=== PATIENT | male | born 1970 | race Caucasian/White ===

== ENCOUNTER 2022-12-08 03:39 | Emergency (ER) | payer MEDICAID ==
[2022-12-08 04:01] VITALS: PULSE 101; RESP 18; TEMP 98.3; O2SAT 97
[2022-12-08] MEDS ORDERED: XARELTO 10 MG TABLET ONE (04:15)
[2022-12-08] MEDS ORDERED: ENOXAPARIN SODIUM SQ STA (04:19)
--- NOTE | 2022-12-08 04:19 | ERPHSYRPT ---
- History of Present Illness Time Seen by Provider: 12/08/22 04:13 Source: patient Exam Limitations: no limitations Patient Subjective Stated Complaint: " I was at [facility] on and they checked me for clots. I did a doppler study on Friday and now I feel like my leg is getting worse." Triage Nursing Assessment: Pt presents to ER with complaints of left leg pain, dx with DVT in leg Friday following doppler study at [facility]. Pt is concerned that leg is getting more swollen and more pain. Pt is alert and oriented x 3. Skin is pink, warm, dry. Pt left leg does appear tender upon exam. Pitting edema noted to left lower extremity. Leg is also red and hot to touch Pt is able to localize where pain is in upper posterior thigh, a knot is noted upon exam. Respirations are easy. Denies n/v/d. Rates leg pain 4/10 scale. Pulses are present in distal leg but weak. Physician History: " I was at [facility] on and they checked me for clots. I did a doppler study on Friday and now I feel like my leg is getting worse." Pt presents to ER with complaints of left leg pain, dx with DVT in leg Friday following doppler study at [facility]. Pt is concerned that leg is getting more swollen and more pain. Pt is alert and oriented x 3. Skin is pink, warm, dry. Pt left leg does appear tender upon exam. Pitting edema noted to left lower extremity. Leg is also red and hot to touch Pt is able to localize where pain is in upper posterior thigh, a knot is noted upon exam. Respirations are easy. Denies n/v/d. Rates leg pain 4/10 scale. Pulses are present in distal leg but weak. Patient was given xarelto RX but patient didnot started it as pharmacy didnot have it or They have ordered it and will be available on friday Severity of Pain-Max: moderate Severity of Pain-Current: moderate Lower Extremities Pain: leg: left Allergies/Adverse Reactions: No Known Drug Allergies Allergy (Verified 12/08/22 03:55) Home Medications: No Reportable Medications [No Reported Medications] 12/08/22 [History] Hx Tetanus, Diphtheria Vaccination/Date Given: Yes Hx Influenza Vaccination/Date Given: Yes Hx Pneumococcal Vaccination/Date Given: No Immunizations Up to Date: Yes Travel Risk - International Travel Have you traveled outside of the country in past 3 weeks: No - Coronavirus Screening Are you exhibiting any of the following symptoms?: No Close contact with a COVID-19 positive Pt in past 14-21 Days: No - Vaccine Status Have you recieved a Covid-19 vaccination: No - Review of Systems Constitutional: No Fever, No Chills Eyes: No Symptoms Ears, Nose, & Throat: No Symptoms Respiratory: No Cough, No Dyspnea Cardiac: No Chest Pain, No Edema, No Syncope Abdominal/Gastrointestinal: No Abdominal Pain, No Nausea, No Vomiting, No Diarrhea Genitourinary Symptoms: No Dysuria Musculoskeletal: Other (left calf pain), No Back Pain, No Neck Pain Skin: No Rash Neurological: No Dizziness, No Focal Weakness, No Sensory Changes Psychological: No Symptoms Endocrine: No Symptoms All Other Systems: Reviewed and Negative - Past Medical History Pertinent Past Medical History: Yes Respiratory History: Pulmonary Embolism Musculoskeletal History: Other Other Medical History: DVT - Past Surgical History Past Surgical History: Yes Other Surgical History: broken jaw - Social History Smoking Status: Current every day smoker How long have you smoked: 30 years Exposure to second hand smoke: No Drug Use: none Patient Lives Alone: No - Nursing Vital Signs Nursing Vital Signs: Initial Vital Signs Temperature 98.3 F 12/08/22 03:44 Pulse Rate 105 H 12/08/22 03:44 Respiratory Rate 20 12/08/22 03:44 Blood Pressure 172/106 12/08/22 03:44 O2 Sat by Pulse Oximetry 96 12/08/22 03:44 Pain Scale Pain Intensity 4 - Physical Exam General Appearance: alert Eyes, Ears, Nose, Throat Exam: moist mucous membranes Neck Exam: non-tender, supple Cardiovascular/Respiratory Exam: chest non-tender, normal breath sounds, regular rate/rhythm, no respiratory distress Gastrointestinal/Abdominal Exam: non-tender, guarding Back Exam: normal inspection, No vertebral tenderness Hips Exam: bilateral: non-tender Legs Exam: left leg: pain, soft tissue tenderness, swelling Neuro/Tendon Exam: normal sensation, normal motor functions Mental Status Exam: alert, oriented x 3, cooperative Skin Exam: normal color, warm, dry SpO2: 97 - Course Nursing assessment & vital signs reviewed: Yes Ordered Tests: Medication Summary Generic Name Dose Route Start Last Admin Trade Name Freq PRN Reason Stop Dose Admin Rivaroxaban 15 mg 10/08/23 10:00 Rivaroxaban 10 Mg Tablet PO 01/07/23 09:59 BID BALJEET Discontinued Medications Generic Name Dose Route Start Last Admin Trade Name Lucas GILLETTE Reason Stop Dose Admin Enoxaparin Sodium 120 mg 12/08/22 04:19 Enoxaparin Sodium 120 Mg/0.8 Ml Syringe SQ 12/08/22 04:20 STAT STA Rivaroxaban Confirm 12/08/22 04:15 Rivaroxaban 10 Mg Tablet Administered 12/08/22 04:16 Dose 50 mg .ROUTE .STK-MED ONE - Progress Progress: unchanged Progress Note: 12/08/22 04:17 lovenox 120 mg given in ER. Xarelto 15 mg one dose given in ER and patient is given 3 tablets of 15 mg xarelto to take it home. till he get his xarelto from pharmacy Counseled pt/family regarding: diagnosis, need for follow-up - Departure Departure Disposition: Home Clinical Impression: Deep vein thrombosis of left lower extremity Qualifiers: Affected thrombotic vein of extremity: femoral Chronicity: acute Qualified Code(s): I82.412 - Acute embolism and thrombosis of left femoral vein Condition: Stable Critical Care Time: No Instructions: Deep Vein Thrombosis (Blood Clots in the Legs) (DC) Additional Instructions: Discharge/Care Plan FERSHARIDHEERAJ Gayathri was seen on 12/08/22 in the Emergency Room. The patient was counseled regarding Diagnosis,Lab results, Imaging studies, need for follow up and when to return to the Emergency Room. Prescriptions given: Discharge Note I have spoken with the patient and/or caregivers. I have explained the patient's condition, diagnosis and treatment plan based on the information available to me at this time. I have answered the patient's and/or caregiver's questions and addressed any concerns. The patient and/or caregivers have as good understanding of the patient's diagnosis, condition and treatment plan as can be expected at this point. The vital signs have been stable. The patient's condition is stable and appropriate for discharge from the emergency department. The patient will pursue further outpatient evaluation with the primary care physician or other designated or consulting physician as outlined in the discharge instructions. The patient and/or caregivers are agreeable to this plan of care and follow-up instructions have been explained in detail. The patient and/or caregivers have received these instruction. The patient/and or caregivers are aware that any significant change in condition or worsening of symptoms should prompt an immediate return to this or the closest emergency department or call 911. DHEERAJ FOSTER was seen on 12/08/22 n the Emergency Room. At that time you were treated for an emergent condition, during your visit Laboratory, Radiology and/or other procedures may have been ordered. It is very important that you follow-up with your Primary Care Physician NO FAMILY DOCTOR within the next 24- 48 hours to review your Emergency Room visit and the final results of testing that was ordered. Some test results such as Urine Cultures, Blood Cultures, and other cultures if ordered will not be finalized for 24-48 hours. If you do not have a Primary Care Provider please call the medical records department at [phone] ext [phone] to obtain a copy of your results or you may sign into our patient portal to obtain these results by visiting us @ [email or web address] and completing the following steps: 1. Click on the Patient Portal link 2. Click the Patient Self Enrollment Link to complete the enrollment form and entering your 3. Once the enrollment form is completed you will receive an email with a temporary ID and password at the email address you provided. 4. Next choose a user name and password. Your user name must be at least 4 characters long and your password must be at least 4 characters long. 5. Choose a security question from the list and provide your answer to the question. If you already have signed into the Health Portal you may access your Health Care Information 23/09 by the following steps: 1. Login to our website @ [email or web address] via [place] 2. Enter your original user name and password. FAQS The [facility] Health Portal is an online tool that contains your Lab Results, Radiology Reports, Visit History, Discharge Instructions and Health Summary Lab and Radiology Results will not be available for 72 hours on the portal. The Portal is a secure site, passwords are encryted and URLs are re-written so they cannot be copied and pasted. You and authorized family members are the only ones who can access your Portal. Also there is a timeout feature that protects your information if you leave the Portal page open. If you have technical difficulty please use the Contact Us link on the page this will allow you to submit any questions you have regarding the Portal or you may contact the Medical Record Department at [phone] ext [phone].
[2022-12-08] MEDS ORDERED: ENOXAPARIN SODIUM SQ ONE (04:20)
[2022-12-08 04:35] VITALS: BP 139/79
[2022-12-08] MEDS ORDERED: XARELTO 10 MG TABLET PO SCH (10:00)
== END 2022-12-08 04:38 | disposition home or self-care (01) ==
LOC: ED 03:39
DX: I82.412 Acute embolism and thrombosis of left femoral vein (principal); M79.605 Pain in left leg; Z28.310 Unvaccinated for COVID-19; Z72.0 Tobacco use
CPT/HCPCS: 96372; 99281; J1650; A9270-GY

== ENCOUNTER 2023-01-16 22:26 | Emergency (ER) | payer MEDICAID, OTHER ==
--- NOTE | 2023-01-16 22:30 | ERPHSYRPT ---
- History of Present Illness Time Seen by Provider: 01/16/23 22:30 Source: patient, EMS Exam Limitations: no limitations Physician History: This is an overweight 52-year-old white male patient who continues to smoke cigarettes daily and presents with right anterior chest pain that came on rather suddenly earlier today with associated shortness of breath. Patient states that it hurts to take a deep breath then and feels bruised. Patient has no diagnosed coronary artery disease. However, he is on Xarelto 20 mg orally each day because a history of DVT and a history of pulmonary embolism. Patient lacks transportation and he contacted the paramedics to transfer him to the emergency department in the ambulance. Patient has no fevers. He denies cough. He had no nausea vomiting or diarrhea. He denies abdominal pain. Patient states he has been taking his medication as prescribed each day. Timing/Duration: today Severity of Dyspnea-Max: mild Severity of Dyspnea-Current: mild Possible Cause: no prior episodes Modifying Factors: Improves With: deep breath Associated Symptoms: intermittent, chest pain/discomfort (Right anterior chest wall pain), No calf pain, No leg swelling Allergies/Adverse Reactions: No Known Drug Allergies Allergy (Verified 01/16/23 22:28) Home Medications: Rivaroxaban [Xarelto] 20 mg PO DAILY 01/16/23 [History] Hx Tetanus, Diphtheria Vaccination/Date Given: Yes Hx Influenza Vaccination/Date Given: Yes Hx Pneumococcal Vaccination/Date Given: No Travel Risk - International Travel Have you traveled outside of the country in past 3 weeks: No - Coronavirus Screening Are you exhibiting any of the following symptoms?: No Close contact with a COVID-19 positive Pt in past 14-21 Days: No - Vaccine Status Have you recieved a Covid-19 vaccination: No - Review of Systems Constitutional: No Symptoms Eyes: No Symptoms Ears, Nose, & Throat: No Symptoms Respiratory: No Symptoms, Dyspnea (Mild with deep inspiration) Cardiac: Chest Pain (Right anterior chest wall pain) Abdominal/Gastrointestinal: No Symptoms Genitourinary Symptoms: No Symptoms Musculoskeletal: No Symptoms Skin: No Symptoms Neurological: No Symptoms Psychological: No Symptoms Endocrine: No Symptoms Hematologic/Lymphatic: No Symptoms Immunological/Allergic: No Symptoms All Other Systems: Reviewed and Negative - Past Medical History Pertinent Past Medical History: Yes Respiratory History: Pulmonary Embolism Musculoskeletal History: Other Other Medical History: DVT - Past Surgical History Past Surgical History: Yes Other Surgical History: broken jaw - Social History Smoking Status: Current every day smoker How long have you smoked: 30 years Exposure to second hand smoke: No Drug Use: none Patient Lives Alone: No - Nursing Vital Signs Nursing Vital Signs: Initial Vital Signs Temperature 99.1 F 01/16/23 22:27 Pulse Rate 100 H 01/16/23 22:27 Respiratory Rate 28 H 01/16/23 22:27 Blood Pressure 181/105 01/16/23 22:27 O2 Sat by Pulse Oximetry 99 01/16/23 22:27 Pain Scale Pain Intensity 2 - Physical Exam General Appearance: no apparent distress, alert, anxiety, obese Eye Exam: PERRL/EOMI, eyes nml inspection Ears, Nose, Throat Exam: hearing grossly normal, normal ENT inspection, normal pharynx Neck Exam: normal inspection, non-tender, supple, full range of motion Respiratory Exam: normal breath sounds, chest tenderness, lungs clear (Right anterior chest wall pain), airway intact, No respiratory distress Cardiovascular/Chest Exam: normal heart sounds, regular rate/rhythm Abdominal/Gastrointestinal Exam: soft, normal bowel sounds, No tenderness Rectal Exam: deferred, not done Extremity Exam: non-tender, normal range of motion (Patient has evidence of chronic venous stasis disease) Neurologic Exam: alert, oriented x 3, cooperative, tax attorney II-XII nml as tested, normal mood/affect, nml cerebellar function, nml station & gait, sensation nml Skin Exam: normal color, warm, dry Lymphatic Exam: No adenopathy SpO2 Interpretation: normal O2 Delivery: Room Air - Course Nursing assessment & vital signs reviewed: Yes EKG Interpreted by Me: RATE (97), NORMAL AXIS, LAFB, NORMAL INTERVALS, NORMAL QRS, Other (No acute ischemic changes on today's twelve-lead EKG.) Ordered Tests: Active Orders 24 hr Category Date Time Status Land Planner STAT Care 01/16/23 22:43 Active EKG-ER Only STAT Care 01/16/23 22:42 Active IV Insertion STAT Care 01/16/23 22:42 Active Pulse Oximetry (ED) STAT Care 01/16/23 22:42 Active CHEST WITH CONTRAST [CT] Stat Exams 01/16/23 23:28 Completed CBC W DIFF Stat Lab 01/16/23 22:45 Completed CMP Stat Lab 01/16/23 22:45 Completed NT PRO BNPII Stat Lab 01/16/23 22:45 Completed PROTIME WITH INR Stat Lab 01/16/23 22:45 Completed TROPONIN Q4H Lab 01/16/23 22:45 Completed TROPONIN Q4H Lab 01/17/23 01:40 Completed TROPONIN Q4H Lab 01/17/23 06:45 Ordered Medication Summary Discontinued Medications Generic Name Dose Route Start Last Admin Trade Name Lucas PRN Reason Stop Dose Admin Sodium Chloride 500 mls @ 500 mls/hr 01/16/23 22:50 01/16/23 23:00 Sodium Chloride 0.9% 500 Ml IV 01/16/23 23:49 500 mls/hr .Q1H ONE Administration Sodium Chloride Confirm 01/16/23 22:57 Sodium Chloride 0.9% 500 Ml Administered 01/16/23 22:58 Dose 500 mls @ ud IV .STK-MED ONE Morphine Sulfate 4 mg 01/16/23 22:49 01/16/23 23:00 Morphine Sulfate 4 Mg/Ml Injection IV 01/16/23 22:50 4 mg STAT ONE Administration Morphine Sulfate Confirm 01/16/23 22:57 Morphine Sulfate 4 Mg/Ml Injection Administered 01/16/23 22:58 Dose 4 mg .ROUTE .STK-MED ONE Nitroglycerin 0.4 mg 01/16/23 22:49 01/16/23 23:00 Nitroglycerin 0.4 Mg (Ed) 0.4 Mg Tab.Subl SL 01/16/23 22:50 0.4 mg STAT ONE Administration Nitroglycerin Confirm 01/16/23 22:57 Nitroglycerin 0.4 Mg (Ed) 0.4 Mg Tab.Subl Administered 01/16/23 22:58 Dose 0.4 mg SL .STK-MED ONE Ondansetron HCl 4 mg 01/16/23 22:49 01/16/23 23:00 Ondansetron Hcl 4 Mg/2 Ml Vial IV 01/16/23 22:50 4 mg STAT ONE Administration Ondansetron HCl Confirm 01/16/23 22:56 Ondansetron Hcl 4 Mg/2 Ml Vial Administered 01/16/23 22:57 Dose 4 mg .ROUTE .STK-MED ONE Lab/Rad Data: Laboratory Result Diagrams 01/16/23 22:45 01/16/23 22:45 Laboratory Results 01/17/23 01/16/2301/16/23 Range/Units 01:40 22:45 22:45 WBC (4.0-10.5) x10^3/uL RBC (4.1-5.6) x10^6/uL Hgb (12.5-18.0) g/dL Hct (42-50) % MCV (78-100) fL MCH (26-32) pg MCHC (32-36) g/dL RDW (11.5-14.0) % Plt Count (150-450) x10^3/uL MPV (7.5-11.0) fL Gran % (36.0-66.0) % Immature Gran % (Auto) (0.00-0.4) % Nucleat RBC Rel Count (0.00-0.1) % Eos # (Auto) (0-0.5) x10^3/uL Immature Gran # (Auto) (0.00-0.03) x10^3u/L Absolute Lymphs (auto) (1.0-4.6) x10^3/uL Absolute Monos (auto) (0.0-1.3) x10^3/uL Absolute Nucleated RBC (0.00-0.01) x10^3u/L Lymphocytes % (24.0-44.0) % Monocytes % (0.0-12.0) % Eosinophils % (0.00-5.0) % Basophils % (0.0-0.4) % Absolute Granulocytes (1.4-6.9) x10^3/uL Basophils # (0-0.4) x10^3/uL PT (9.4-12.5) SECONDS INR (0.8-3.0) Sodium (137-145) mmol/L Potassium (3.5-5.1) mmol/L Chloride (98-107) mmol/L Carbon Dioxide (22-30) mmol/L Anion Gap (5-15) MEQ/L BUN (9-20) mg/dL Creatinine (0.66-1.25) mg/dL Estimated GFR ML/MIN Glucose (74-106) mg/dL Calcium (8.4-10.2) mg/dL Total Bilirubin (0.2-1.3) mg/dL AST (17-59) U/L ALT (0-50) U/L Alkaline Phosphatase (38-126) U/L Troponin I < 0.012 < 0.012 (0.000-0.034) ng/mL NT-Pro-B Natriuret Pep (<300) pg/mL Serum Total Protein (6.3-8.2) g/dL Albumin (3.5-5.0) g/dL Influenza Type A Ag NEGATIVE (NEGATIVE) Influenza Type B Ag NEGATIVE (NEGATIVE) RSV (PCR) NEGATIVE (NEGATIVE) SARS-CoV-2 (PCR) POSITIVE A (NEGATIVE) 01/16/23 01/16/23 01/16/23 Range/Units 22:45 22:45 22:45 WBC 9.6 (4.0-10.5) x10^3/uL RBC 4.95 (4.1-5.6) x10^6/uL Hgb 14.0 (12.5-18.0) g/dL Hct 44.2 (42-50) % MCV 89.3 (78-100) fL MCH 28.3 (26-32) pg MCHC 31.7 L (32-36) g/dL RDW 13.8 (11.5-14.0) % Plt Count 311 (150-450) x10^3/uL MPV 8.7 (7.5-11.0) fL Gran % 58.6 (36.0-66.0) % Immature Gran % (Auto) 0.4 (0.00-0.4) % Nucleat RBC Rel Count 0.0 (0.00-0.1) % Eos # (Auto) 0.17 (0-0.5) x10^3/uL Immature Gran # (Auto) 0.04 H (0.00-0.03) x10^3u/L Absolute Lymphs (auto) 2.77 (1.0-4.6) x10^3/uL Absolute Monos (auto) 0.94 (0.0-1.3) x10^3/uL Absolute Nucleated RBC 0.00 (0.00-0.01) x10^3u/L Lymphocytes % 28.9 (24.0-44.0) % Monocytes % 9.8 (0.0-12.0) % Eosinophils % 1.8 (0.00-5.0) % Basophils % 0.5 (0.0-0.4) % Absolute Granulocytes 5.62 (1.4-6.9) x10^3/uL Basophils # 0.05 (0-0.4) x10^3/uL PT 11.1 (9.4-12.5) SECONDS INR 1.02 (0.8-3.0) Sodium 137 (137-145) mmol/L Potassium 3.6 (3.5-5.1) mmol/L Chloride 103 (98-107) mmol/L Carbon Dioxide 24 (22-30) mmol/L Anion Gap 13.9 (5-15) MEQ/L BUN 18 (9-20) mg/dL Creatinine 0.99 (0.66-1.25) mg/dL Estimated GFR 92.8 ML/MIN Glucose 142 H (74-106) mg/dL Calcium 8.6 (8.4-10.2) mg/dL Total Bilirubin 0.30 (0.2-1.3) mg/dL AST 21 (17-59) U/L ALT 18 (0-50) U/L Alkaline Phosphatase 67 (38-126) U/L Troponin I (0.000-0.034) ng/mL NT-Pro-B Natriuret Pep 33.9 (<300) pg/mL Serum Total Protein 7.2 (6.3-8.2) g/dL Albumin 4.0 (3.5-5.0) g/dL Influenza Type A Ag (NEGATIVE) Influenza Type B Ag (NEGATIVE) RSV (PCR) (NEGATIVE) SARS-CoV-2 (PCR) (NEGATIVE) - Progress Progress: improved Air Movement: good Progress Note: 01/16/23 22:55 This patient's medical issue is 1 of moderate complexity. Level complex in the work-up performed is based on review of the patient's past medical history, review the patient's medication list, review the patient's drug allergy list, history present illness and physical findings on examination. Work-up in this patient includes placement of intravenous line, infusion of normal saline solution, CBC, CMP, troponin level, BNP, twelve-lead EKG, CT scan of the chest with contrast. We will also provide the patient with morphine 4 mg intravenously, Zofran 4 mg intravenously and nitroglycerin 0.4 mg sub lingually 01/17/23 01:10 I reviewed and interpreted the patient's lab results. He has no emergent findings on review of his laboratory results. However, patient does have COVID- 19 infection. the patient's twelve-lead EKG does not show any acute findings. I have no comparison twelve-lead EKG. Patient's first troponin is in the normal range. Patient's heart score is approximately 2 or 3 at the most. We will repeat twelve-lead EKG and troponin level at the 3-hour jairo. If these studies within normal limits, we will discharge him to home. I reviewed the results of the CT scan of the chest with the patient. The CT scan of the chest with contrast was interpreted by the radiologist. There is no evidence of pulmonary embolus. Patient has ill-defined heterogenous area consisting of spiculated nodules and ground glass opacities at the medial segment of the right middle lobe of the lung. These nodules may be benign versus malignant. PET/CT and histological work-up is recommended. I discussed these findings with the patient. 01/17/23 02:39 Repeat studies/troponin negative. Patient has no chest pain. Blood Culture(s) Obtained: No Antibiotics given: No Counseled pt/family regarding: lab results, diagnosis, rad results Medical Desision Making - Diagnostic Testing Diagnostic test were ordered, analyzed, and reviewed by me: Yes Radiological Interpretation: Reviewed by me, Teleradiologist Report - Risk of complications Low Risk: Low risk of morbidity from additional dx testing or treatment - Departure Departure Disposition: Home Clinical Impression: COVID-19 virus infection, Right middle lobe pulmonary nodule Condition: Stable Critical Care Time: No Referrals: DOCTOR,NO FAMILY [Primary Care Provider] - Follow up/PCP as directed Instructions: COVID-19 (DC) Additional Instructions: Stop smoking. Continue your medication as prescribed. Call your primary care provider's office on the morning of 01/20/2023. Tell them that you are positive for COVID-19 infection. In addition, you must also tell the office that you have a spiculated nodule in the right lobe of your lung that needs to be further evaluated by a PET scan and biopsy.
[2023-01-16 22:46] VITALS: TEMP 99.1
[2023-01-16] MEDS ORDERED: Zofran 4 MG/2 ML VIAL IV ONE (22:49)
[2023-01-16] MEDS ORDERED: MORPHINE SULFATE 4 MG INJ IV ONE (22:49)
[2023-01-16] MEDS ORDERED: Nitrostat 0.4 MG (ED) SL ONE ×2 (22:49→22:57)
[2023-01-16] MEDS ORDERED: Sodium Chloride 0.9% 500 ML 500 ML IV ONE ×2 (22:50→22:57)
[2023-01-16] MEDS ORDERED: Zofran 4 MG/2 ML VIAL ONE (22:56)
[2023-01-16] MEDS ORDERED: MORPHINE SULFATE 4 MG INJ ONE (22:57)
[2023-01-16 23:00] LABS: Absolute Neutrophil Ct (ANC) 5.62 x10^3/uL (1.4-6.9); BASOPHIL % 0.5 % (0.0-0.4); Basophil (Absolute #) 0.05 x10^3/uL (0-0.4); Eosinophil % 1.8 % (0.00-5.0); Eosinophil (Absolute #) 0.17 x10^3/uL (0-0.5); Hematocrit 44.2 % (42-50); IMMATURE GRAN # 0.04 x10^3u/L (0.00-0.03); IMMATURE GRAN % 0.4 % (0.00-0.4); Lymphocyte (Absolute #) 2.77 x10^3/uL (1.0-4.6); Lymphocytes % 28.9 % (24.0-44.0); Mean Cell Volume 89.3 fL (78-100); Mean Corpuscular Hemoglobin 28.3 pg (26-32); Mean Corpuscular Hgb Concent. 31.7 g/dL (32-36); Mean Platelet Volume 8.7 fL (7.5-11.0); Monocyte (Absolute #) 0.94 x10^3/uL (0.0-1.3); Monocytes % 9.8 % (0.0-12.0); Neutrophil % 58.6 % (36.0-66.0); Platelet Count 311 x10^3/uL (150-450); Red Blood Count 4.95 x10^6/uL (4.1-5.6); Red Cell Distribution Width 13.8 % (11.5-14.0); White Blood Count 9.6 x10^3/uL (4.0-10.5)
[2023-01-16 23:10] LABS: INR 1.02 (0.8-3.0); PROTIME 11.1 SECONDS (9.4-12.5)
[2023-01-16 23:12] LABS: ANION GAP 13.9 MEQ/L (5-15); BILIRUBIN,TOTAL 0.3 mg/dL (0.2-1.3); Calcium 8.6 mg/dL (8.4-10.2); Creatinine 1 0.99 mg/dL (0.66-1.25); EST GLOMERULAR FILTRATION RATE 92.8 ML/MIN; Potassium 3.6 mmol/L (3.5-5.1); Total Protein 7.2 g/dL (6.3-8.2)
[2023-01-16 23:20] LABS: NT PRO BNPII 33.9 pg/mL (<300)
[2023-01-16 23:35] LABS: INFLUENZA A NEGATIVE (NEGATIVE); INFLUENZA B NEGATIVE (NEGATIVE); RESPIRATORY SYNCTIAL VIRUS NEGATIVE (NEGATIVE)
[2023-01-16 23:39] LABS: SARS-CoV-2 Xpert Express POSITIVE (NEGATIVE)
--- NOTE | 2023-01-17 00:51 | XRAY ---
CLINICAL HISTORY:Shortness of air COMPARISON:None. TECHNIQUE:Contiguous axial CT images of the chest were acquired with administration of intravenous contrast. Coronal and sagittal reconstructions were obtained. Limited study due to motion artifacts. FINDINGS: There is an ill-defined heterogenous area of ground glass opacity is seen comprising of spiculated nodules involving medial segment of the right middle lobe along right rashawn fissure. The larger nodule measured 1.8 x 1.0 cm approximately. (Ser:2, image 89 lung window ). Another smaller rounded nodule measuring 6 x 6 mm with fuzzy margin is seen involving lateral segment of the left lower lobe.(ser: 3, image;39). Few tiny 1-2 mm nodules are seen involving bilateral lower lobes. Bilateral lower lobe atelectatic changes are seen more pronounced on the right side. No evidence of pneumothorax or pneumomediastinum on either side. No evidence of pleural effusion either side. No evidence of cardiomegaly, pulmonary arterial or aortic dilation. No evidence of mediastinal or axillary lymphadenopathy. No acute fracture or osseous pathology. No focal lytic or sclerotic lesion within bones Mild spondylotic changes are seen in the visualized thoracic spine. IMPRESSION: An ill-defined heterogenous area comprising of spiculated nodules and groundglass opacities at medial segment of the right middle lobe.The larger nodule measured 1.8 x 1.0 cm approximately. (Ser:2, image 89 lung window ) Possibility of benign versus malignant etiology should be ruled out on clinical correlation as well as PET/CT and and histopathological workup if required. Another smaller rounded nodule measuring 6 x 6 mm with fuzzy margins at lateral segment of the left lower lobe.(ser: 3, image;39). Electronically Signed by: Austen Lou MD. (01/16/2023 23:49:22 [employer]STRUCTOR [employer])
[2023-01-17 02:37] VITALS: BP 161/92; PULSE 80; RESP 19; O2SAT 95
== END 2023-01-17 03:00 | disposition home or self-care (01) ==
LOC: ED 22:26
DX: U07.1 COVID-19 (principal); R91.1 Solitary pulmonary nodule; R07.9 Chest pain, unspecified; R06.02 Shortness of breath; Z79.01 Long term (current) use of anticoagulants; Z28.310 Unvaccinated for COVID-19; Z72.0 Tobacco use; Z59.82 Transportation insecurity
CPT/HCPCS: 0241U; 36000; 36415; 71260; 80053; 83880; 84484; 85025; 85610; 93005; 93041; 94760; 96374; 96375; 99284; J2270; J2405; A9270-GY

== ENCOUNTER 2023-04-12 06:02 | Emergency (ER) | payer OTHER ==
[2023-04-12 06:25] VITALS: TEMP 97.3
--- NOTE | 2023-04-12 06:34 | ERPHSYRPT ---
- History of Present Illness Source: patient Exam Limitations: no limitations Patient Subjective Stated Complaint: pt states that he has increased swelling to LLE. pt states he has seen an increase in swelling to LLE the past couple days. Triage Nursing Assessment: pt ambulated into the er; pt is axo x4; c/o LLE swelling; 1+ edema to LLE; strong left pedal pulse; hyperpmentation to LLE; pt denies pain to LLE; no respiratory distress present; hypertensive; skin PDW Method of Injury: other (No injury) Quality: constant, aching Severity of Pain-Max: moderate Severity of Pain-Current: moderate Lower Extremities Pain: leg: left (Below the knee) Modifying Factors: Improves With: movement Associated Symptoms: none Hx Tetanus, Diphtheria Vaccination/Date Given: Yes Hx Influenza Vaccination/Date Given: No Hx Pneumococcal Vaccination/Date Given: No <RICHARD YANG - Last Filed: 04/12/23 06:52> <REFUGIO MCGRATH - Last Filed: 04/12/23 11:15> - History of Present Illness Time Seen by Provider: 04/12/23 06:25 Physician History: This is an overweight 53-year-old white male patient who is a smoker of cigarettes and presents with increasing swelling redness and tenderness to the left lower extremity for the last 2 days. Patient has a history of DVT and pulmonary embolus in the past. He was first diagnosed with a DVT in his left lower extremity in 2019. He states that he is taking his medicine as prescribed. Patient has a history of hypertension. He has no known drug allergies. Patient denies shortness of breath at this time. Patient denies hemoptysis, patient denies chest pain (RICHARD YANG) Allergies/Adverse Reactions: No Known Drug Allergies Allergy (Verified 04/12/23 06:08) Home Medications: Rivaroxaban [Xarelto] 20 mg PO DAILY 01/16/23 [History] Lisinopril 10 mg [Zestril 10 MG] 10 mg PO DAILY 04/12/23 [History] Travel Risk - International Travel Have you traveled outside of the country in past 3 weeks: No - Coronavirus Screening Are you exhibiting any of the following symptoms?: No Close contact with a COVID-19 positive Pt in past 14-21 Days: No - Vaccine Status Have you recieved a Covid-19 vaccination: No <RICHARD YANG - Last Filed: 04/12/23 06:52> - Review of Systems Constitutional: No Symptoms Eyes: No Symptoms Ears, Nose, & Throat: No Symptoms Respiratory: No Symptoms Cardiac: No Symptoms Abdominal/Gastrointestinal: No Symptoms Genitourinary Symptoms: No Symptoms Musculoskeletal: No Symptoms Skin: No Symptoms Neurological: No Symptoms Psychological: No Symptoms Endocrine: No Symptoms Hematologic/Lymphatic: Blood Clots Immunological/Allergic: No Symptoms All Other Systems: Reviewed and Negative <RICHARD YANG - Last Filed: 04/12/23 06:52> - Past Medical History Pertinent Past Medical History: Yes Neurological History: No Pertinent History ENT History: No Pertinent History Cardiac History: Deep Vein Thrombosis Respiratory History: Pulmonary Embolism Endocrine Medical History: No Pertinent History Musculoskeletal History: Other GI Medical History: No Pertinent History History: No Pertinent History Psycho-Social History: No Pertinent History Male Reproductive Disorders: No Pertinent History Other Medical History: DVT - Past Surgical History Past Surgical History: Yes Musculoskeletal: Orthopedic Surgery Other Surgical History: broken jaw - Social History Smoking Status: Current every day smoker How long have you smoked: 30 years Exposure to second hand smoke: Yes Drug Use: none Patient Lives Alone: No <RICHARD YANG - Last Filed: 04/12/23 06:52> - Physical Exam General Appearance: no apparent distress, alert, anxiety Eyes, Ears, Nose, Throat Exam: normal ENT inspection, moist mucous membranes Neck Exam: normal inspection, non-tender, supple, full range of motion Cardiovascular/Respiratory Exam: chest non-tender, no respiratory distress Gastrointestinal/Abdominal Exam: non-tender Back Exam: normal inspection, normal range of motion, No CVA tenderness, No vertebral tenderness Hips Exam: bilateral: non-tender, normal inspection, normal range of motion, no evidence of injury Legs Exam: right leg: non-tender, normal inspection, left leg: soft tissue tenderness (Below the knee calf and ankle), swelling (Below the knee calf and ankle), bilateral leg: normal range of motion, no evidence of injury Knees Exam: bilateral knee: non-tender, normal inspection, normal range of motion, no evidence of injury Ankle Exam: right ankle: non-tender, normal inspection, left ankle: soft tissue tenderness (Below the knee calf and ankle), swelling (Below the knee calf and ankle), bilateral ankle: normal range of motion, no evidence of injury Foot Exam: bilateral foot: non-tender, normal inspection, normal range of motion, no evidence of injury Neuro/Tendon Exam: normal sensation, normal motor functions, normal tendon functions, responds to pain, no evidence tendon injury Mental Status Exam: alert, oriented x 3, cooperative Skin Exam: normal color, warm SpO2 Interpretation: normal SpO2: 99 O2 Delivery: Room Air <RICHARD YANG - Last Filed: 04/12/23 06:52> - Nursing Vital Signs Nursing Vital Signs: Initial Vital Signs Blood Pressure 159/99 04/12/23 06:10 O2 Sat by Pulse Oximetry 95 04/12/23 06:10 Pain Scale Pain Intensity 0 - Course Nursing assessment & vital signs reviewed: Yes <RICHARD YANG - Last Filed: 04/12/23 06:52> Ordered Tests: Active Orders 24 hr Category Date Time Status EKG-ER Only STAT Care 04/12/23 07:05 Active IV Insertion STAT Care 04/12/23 07:05 Active CHEST WITH CONTRAST [CT] Stat Exams 04/12/23 07:06 Completed VENOUS UNILAT/LIMITED EXTREMIT [US] Stat Exams 04/12/23 07:07 Taken CBC W DIFF Stat Lab 04/12/23 06:03 Completed CMP Stat Lab 04/12/23 06:03 Completed TROPONIN Q4H Lab 04/12/23 06:03 Completed TROPONIN Q4H Lab 04/12/23 11:15 Ordered TROPONIN Q4H Lab 04/12/23 15:15 Ordered Lab/Rad Data: Laboratory Result Diagrams 04/12/23 06:03 04/12/23 06:03 Laboratory Results 04/12/23 04/12/23 04/12/23 Range/Units 06:03 06:03 06:03 WBC 9.5 (4.0-10.5) x10^3/uL RBC 5.16 (4.1-5.6) x10^6/uL Hgb 14.6 (12.5-18.0) g/dL Hct 45.7 (42-50) % MCV 88.6 (78-100) fL MCH 28.3 (26-32) pg MCHC 31.9 L (32-36) g/dL RDW 15.1 H (11.5-14.0) % Plt Count 333 (150-450) x10^3/uL MPV 8.7 (7.5-11.0) fL Gran % 53.9 (36.0-66.0) % Immature Gran % (Auto) 0.3 (0.00-0.4) % Nucleat RBC Rel Count 0.0 (0.00-0.1) % Eos # (Auto) 0.13 (0-0.5) x10^3/uL Immature Gran # (Auto) 0.03 (0.00-0.03) x10^3u/L Absolute Lymphs (auto) 3.11 (1.0-4.6) x10^3/uL Absolute Monos (auto) 1.07 (0.0-1.3) x10^3/uL Absolute Nucleated RBC 0.00 (0.00-0.01) x10^3u/L Lymphocytes % 32.8 (24.0-44.0) % Monocytes % 11.3 (0.0-12.0) % Eosinophils % 1.4 (0.00-5.0) % Basophils % 0.3 (0.0-0.4) % Absolute Granulocytes 5.12 (1.4-6.9) x10^3/uL Basophils # 0.03 (0-0.4) x10^3/uL Sodium 139 (137-145) mmol/L Potassium 3.7 (3.5-5.1) mmol/L Chloride 105 (98-107) mmol/L Carbon Dioxide 29 (22-30) mmol/L Anion Gap 9.8 (5-15) MEQ/L BUN 20 (9-20) mg/dL Creatinine 1.17 (0.66-1.25) mg/dL Estimated GFR 75.5 ML/MIN Glucose 118 H (74-106) mg/dL Calcium 10.3 H (8.4-10.2) mg/dL Total Bilirubin 0.50 (0.2-1.3) mg/dL AST 17 (17-59) U/L ALT 18 (0-50) U/L Alkaline Phosphatase 61 (38-126) U/L Troponin I < 0.012 (0.000-0.034) ng/mL Serum Total Protein 7.4 (6.3-8.2) g/dL Albumin 4.2 (3.5-5.0) g/dL - Progress Progress: unchanged <RICHARD YANG - Last Filed: 04/12/23 06:52> - Progress Progress: improved, re-examined Counseled pt/family regarding: lab results, diagnosis, need for follow-up, rad results, smoking cessation <REFUGIO MCGRATH - Last Filed: 04/12/23 11:15> - Progress Progress Note: 04/12/23 07:00 This patient's medical issue is 1 of moderate complexity. Level of complexity in the workup performed is based on review of the patient's past medical history, review the patient's medication list, review the patient drug allergy list, history present illness and physical findings on examination. The workup in this patient includes placement of intravenous line, CBC, CMP, procalcitonin level, left lower extremity venous ultrasound, CT of the chest with contrast, twelve-lead EKG, troponin level. Transfer of care to Dr. Mcgrtah at shift change. He will follow-up on the results of the workup and make final disposition. (RICHARD YANG) 04/12/23 11:03 53-year-old is evaluated in the ER for left lower extremity swelling especially in the calf area but minimal pain. Patient during my evaluation reports he does not have any pain at all but was there earlier. I did not appreciate any i ncrease in temperature in the calf as compared to rest of left lower extremity and when compared with right 1. Has normal white count, fairly unremarkable chemistries. Obtain ultrasound left lower extremity which is showing nonocclusive DVT which patient did have previously. CT chest is negative for any acute cardiopulmonary findings. No PE. Patient has a little more swelling in the left as compared to right and I have recommended using compression stocking, elevation and outpatient follow-up at this could be due to chronic clot causing some element of lymphedema. I do not think patient needs antibiotic as it does not seem cellulitis and the color is the same as it was before per patient. Discussed signs symptoms of worsening needing return to ER which he seems understanding. Stable for discharge. (REFUGIO MCGRATH) - Departure Departure Disposition: Home Critical Care Time: No <RICHARD YANG - Last Filed: 04/12/23 06:52> - Departure Critical Care Time: No <REFUGIO MCGRATH - Last Filed: 04/12/23 11:15> - Departure Clinical Impression: Left leg swelling Condition: Stable Referrals: CANDICE MICHAELS [NON-STAFF PHY W/O PRIVILEGES] - Follow up with PCP 2 days Instructions: Dependent Edema (DC) Additional Instructions: Use compression stocking. Keep leg elevated all lying down. Tylenol as needed for pain. Follow-up with primary care for reevaluation. Return to ER for worsening of swelling or if having discoloration of lower leg/foot/fever/chills etc. Continue with Xarelto.
[2023-04-12 07:27] LABS: Absolute Neutrophil Ct (ANC) 5.12 x10^3/uL (1.4-6.9); BASOPHIL % 0.3 % (0.0-0.4); Basophil (Absolute #) 0.03 x10^3/uL (0-0.4); Eosinophil % 1.4 % (0.00-5.0); Eosinophil (Absolute #) 0.13 x10^3/uL (0-0.5); Hematocrit 45.7 % (42-50); Hemoglobin 14.6 g/dL (12.5-18.0); IMMATURE GRAN # 0.03 x10^3u/L (0.00-0.03); IMMATURE GRAN % 0.3 % (0.00-0.4); Lymphocyte (Absolute #) 3.11 x10^3/uL (1.0-4.6); Lymphocytes % 32.8 % (24.0-44.0); Mean Cell Volume 88.6 fL (78-100); Mean Corpuscular Hemoglobin 28.3 pg (26-32); Mean Corpuscular Hgb Concent. 31.9 g/dL (32-36); Mean Platelet Volume 8.7 fL (7.5-11.0); Monocyte (Absolute #) 1.07 x10^3/uL (0.0-1.3); Monocytes % 11.3 % (0.0-12.0); Neutrophil % 53.9 % (36.0-66.0); Platelet Count 333 x10^3/uL (150-450); Red Blood Count 5.16 x10^6/uL (4.1-5.6); Red Cell Distribution Width 15.1 % (11.5-14.0); White Blood Count 9.5 x10^3/uL (4.0-10.5)
[2023-04-12 07:41] LABS: ALBUMIN 4.2 g/dL (3.5-5.0); ANION GAP 9.8 MEQ/L (5-15); BILIRUBIN,TOTAL 0.5 mg/dL (0.2-1.3); Calcium 10.3 mg/dL (8.4-10.2); Creatinine 1 1.17 mg/dL (0.66-1.25); EST GLOMERULAR FILTRATION RATE 75.5 ML/MIN; Potassium 3.7 mmol/L (3.5-5.1); Total Protein 7.4 g/dL (6.3-8.2)
--- NOTE | 2023-04-12 10:15 | XRAY ---
CLINICAL HISTORY: Shortness of breath TECHNIQUE: Contiguous axial CT images of the chest were acquired with the administration of intravenous contrast. Coronal and sagittal reconstructions were obtained. Images were sent to PACs for interpretation. COMPARISON: Dated: 01/16/2023. FINDINGS: Complete resolution of the previously noted ground glass nodule at the right middle lung lobe, leaving residual fibrotic changes/pulmonary scarring. Another smaller rounded nodule measuring 6 x 6 mm with a fuzzy margin is seen involving a lateral segment of the left lower lobe is unchanged since the previous. (ser: 3, image;43). A 5mm nodule was seen in the right lung base serial number [id number] and image number 50/75 and stable since the last study. Subtle fine thin atelectasis was seen in both lung bases compared with previously marked improvement in the disease process noted. No evidence of pneumothorax or pneumomediastinum on either side. No evidence of pleural effusion on either side. No evidence of cardiomegaly, pulmonary arterial, or aortic dilation. No evidence of mediastinal or axillary lymphadenopathy. No acute fracture or osseous pathology. No focal lytic or sclerotic lesion within bones Mild spondylotic changes are seen in the visualized thoracic spine. IMPRESSION: 1. Resolution of right middle lung lobe ground glass nodule. 2. Stable course of right and left basal nodules. Follow-up by CT in 3-6 months is advised. Electronically Signed by: Austen Lou MD. (04/12/2023 10:10:26 EST)
[2023-04-12 11:00] VITALS: BP 132/84; PULSE 100; RESP 20; O2SAT 96
--- NOTE | 2023-04-12 20:35 | XRAY ---
Indication: Pain and swelling. History DVT. Current blood thinner therapy. Two-dimensional sonogram and color Doppler imaging major venous vessels left leg performed. Comparison: None Nonoccluding thrombi seen in the popliteal vein extending into the posterior tibial vein. No other thrombus in the remaining examined deep venous vessels including greater saphenous vein. Patent veins demonstrate normal compressibility and normal venous waveforms. Impression: Nonoccluding DVT popliteal and posterior tibial veins. Comment: Preliminary report was given.
== END 2023-04-12 11:44 | disposition home or self-care (01) ==
LOC: ED 06:02
DX: R22.42 Localized swelling, mass and lump, left lower limb (principal); M79.605 Pain in left leg; I10 Essential (primary) hypertension; Z79.01 Long term (current) use of anticoagulants; Z79.899 Other long term (current) drug therapy; Z28.310 Unvaccinated for COVID-19; Z72.0 Tobacco use
CPT/HCPCS: 36000; 36415; 71260; 80053; 84484; 85025; 93005; 93971; 99284

== ENCOUNTER 2023-10-26 08:34 | Emergency (ER) | payer OTHER ==
[2023-10-26 08:55] VITALS: TEMP 98.3
[2023-10-26] MEDS ORDERED: PROTONIX 40 MG IV IV ONE (08:56)
[2023-10-26] MEDS ORDERED: Sodium Chloride 0.9% 1000 ML 1,000 ML ONE (08:56)
[2023-10-26] MEDS ORDERED: Zofran 4 MG/2 ML VIAL ONE (08:56)
[2023-10-26] MEDS: Zofran 4 MG/2 ML VIAL IV ONE (09:04)
[2023-10-26] MEDS: Sodium Chloride 0.9% 1000 ML 1,000 ML IV STA (09:04)
[2023-10-26] MEDS: PROTONIX 40 MG IV IV ONE (09:06)
[2023-10-26 09:11] LABS: Absolute Neutrophil Ct (ANC) 8.68 x10^3/uL (1.78-5.38); BASOPHIL % 0.5 % (0.2-1.2); Basophil (Absolute #) 0.06 x10^3/uL (0.01-0.08); Eosinophil % 0.3 % (0.8-7.0); Eosinophil (Absolute #) 0.04 x10^3/uL (0.04-0.54); Hematocrit 48.9 % (40.1-51.0); Hemoglobin 16.1 g/dL (13.7-17.5); IMMATURE GRAN # 0.07 x10^3u/L (0.001-0.031); IMMATURE GRAN % 0.6 % (0.001-0.429); Lymphocyte (Absolute #) 2.42 x10^3/uL (1.32-3.57); Lymphocytes % 19.3 % (21.8-53.1); Mean Cell Volume 86.4 fL (79.0-92.2); Mean Corpuscular Hemoglobin 28.4 pg (25.7-32.2); Mean Corpuscular Hgb Concent. 32.9 g/dL (32.3-36.5); Mean Platelet Volume 8.8 fL (9.4-12.4); Monocyte (Absolute #) 1.25 x10^3/uL (0.30-0.82); Neutrophil % 69.3 % (34.0-67.9); Platelet Count 362 x10^3/uL (163-337); Red Blood Count 5.66 x10^6/uL (4.63-6.08); Red Cell Distribution Width 14.6 % (11.6-14.4); White Blood Count 12.5 x10^3/uL (4.23-9.07)
[2023-10-26 09:22] LABS: ANION GAP 20.1 MEQ/L (5-15); BILIRUBIN,TOTAL 1.1 mg/dL (0.2-1.3); Calcium 10.1 mg/dL (8.4-10.2); Creatinine 1 4.03 mg/dL (0.66-1.25); EST GLOMERULAR FILTRATION RATE 17.1 ML/MIN; Potassium 3.7 mmol/L (3.5-5.1); Total Protein 8.8 g/dL (6.3-8.2)
--- NOTE | 2023-10-26 09:23 | ERPHSYRPT ---
- History of Present Illness Time Seen by Provider: 10/26/23 08:55 Historian: patient Exam Limitations: no limitations Patient Subjective Stated Complaint: Abdominal pain Triage Nursing Assessment: Patient ambulated back to ED and transferred self to bed. Patient A+O X 3. Patient's skin pink, warm and dry. Patient complains of intermittent upper abdominal/chest disomcomfort when taking a deep breath that started around 0645 this am. Patient also complains of N/V and denies diarrhea. Abdomen soft and round with BS X 4. Physician History: This is a 53-year-old white male patient who presents with vomiting/spitting up and chest tightness as well as some upper abdominal/epigastric discomfort. Symptoms began this morning. Patient has no diagnosed coronary artery disease. Patient still has his gallbladder in place. Patient has a history of hypertension and has had a history of DVT/pulmonary embolism and is on Xarelto. Patient smokes tobacco daily. He has no known drug allergies. He has not seen his primary care provider in quite some time but does have some bilateral leg swelling and uses [id number] diuretic products. Timing/Duration: today Activities at Onset: none Quality: tightness (Upper abdominal) Abdominal Pain Onset Location: RUQ, LUQ, epigastric Pain Radiation: no radiation Severity of Pain-Max: mild Severity of Pain-Current: mild Modifying Factors: Improves With: vomiting (Grabs it is more spitting up) Associated Symptoms: chest pain (Lower chest tightness), vomiting (Describes it as spitting up) Previous symptoms: no prior history, no recent treatment Allergies/Adverse Reactions: No Known Drug Allergies Allergy (Verified 10/26/23 08:42) Home Medications: Rivaroxaban [Xarelto] 20 mg PO DAILY 01/16/23 [History] Lisinopril 10 mg [Zestril 10 MG] 10 mg PO DAILY 04/12/23 [History] Hx Tetanus, Diphtheria Vaccination/Date Given: Yes Hx Influenza Vaccination/Date Given: No Hx Pneumococcal Vaccination/Date Given: No Immunizations Up to Date: Yes Travel Risk - International Travel Have you traveled outside of the country in past 3 weeks: No - Emerging Infectious Disease Are you exhibiting symptoms associated with any current EIDs: No - Review of Systems Constitutional: No Symptoms Eyes: No Symptoms Ears, Nose, & Throat: No Symptoms Respiratory: No Symptoms Cardiac: Chest Pain (Scribes it as tightness) Abdominal/Gastrointestinal: Abdominal Pain (Bilateral upper quadrants and epigastric region), Nausea, Vomiting (Scribes it as spitting up) Genitourinary Symptoms: No Symptoms Musculoskeletal: No Symptoms Skin: No Symptoms Neurological: No Symptoms Psychological: No Symptoms Endocrine: No Symptoms Hematologic/Lymphatic: No Symptoms Immunological/Allergic: No Symptoms All Other Systems: Reviewed and Negative - Past Medical History Pertinent Past Medical History: Yes Neurological History: No Pertinent History ENT History: No Pertinent History Cardiac History: Deep Vein Thrombosis Respiratory History: Pulmonary Embolism Endocrine Medical History: No Pertinent History Musculoskeletal History: Other GI Medical History: No Pertinent History History: No Pertinent History Psycho-Social History: No Pertinent History Male Reproductive Disorders: No Pertinent History Other Medical History: DVT - Past Surgical History Past Surgical History: Yes Musculoskeletal: Orthopedic Surgery Other Surgical History: broken jaw - Social History Smoking Status: Current every day smoker How long have you smoked: 30 years Exposure to second hand smoke: Yes Drug Use: none Patient Lives Alone: No - Social Determinants of Health Will the patient participate in the screening: Yes Do you worry about a steady place to live?: No Do you have any problems with any of the following?: No known problems In the past 12 months,have you had to go without utilities?: No Transportation Issues: No Has anyone in your support network made you feel unsafe?: No Have you or anyone in your house had to go without enough: No - Nursing Vital Signs Nursing Vital Signs: Initial Vital Signs Temperature 98.3 F 10/26/23 08:45 Pulse Rate 105 H 10/26/23 08:45 Respiratory Rate 20 10/26/23 08:45 Blood Pressure 106/81 10/26/23 08:45 O2 Sat by Pulse Oximetry 99 10/26/23 08:45 Pain Scale Pain Intensity 0 - Physical Exam General Appearance: no apparent distress, alert Eye Exam: PERRL/EOMI, eyes nml inspection Ears, Nose, Throat Exam: normal ENT inspection, moist mucous membranes Neck Exam: normal inspection, non-tender, supple, full range of motion Respiratory Exam: normal breath sounds, lungs clear, airway intact, No chest tenderness, No respiratory distress Cardiovascular Exam: regular rate/rhythm, normal heart sounds, normal peripheral pulses Gastrointestinal/Abdomen Exam: soft, normal bowel sounds, tenderness (Mild epigastric and bilateral upper quadrants to palpation), guarding, No rebound Rectal Exam: not done Back Exam: normal inspection, normal range of motion, No CVA tenderness, No vertebral tenderness Extremity Exam: pedal edema (Bilateral feet and ankle edema that are equal) Neurologic Exam: alert, oriented x 3, cooperative, 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, normal mood/affect, sensation nml Skin Exam: normal color, warm, dry Lymphatic Exam: No adenopathy SpO2 Interpretation: normal SpO2: 98 O2 Delivery: Room Air - Course Nursing assessment & vital signs reviewed: Yes EKG Interpreted by Me: RATE (102), Sinus Tach, LAFB, NORMAL INTERVALS, NORMAL QRS, NORMAL ST-T, Other (No acute ischemic changes on today's twelve-lead EKG.) Ordered Tests: Active Orders 24 hr Category Date Time Status IV Insertion STAT Care 10/26/23 08:42 Active ABDOMEN AND PELVIS W/0 CONTRAS [CT] Stat Exams 10/26/23 09:17 Completed CHEST 1 VIEW (PORTABLE) Stat Exams 10/26/23 09:27 Taken AMYLASE Stat Lab 10/26/23 09:11 Completed BNPII [NT PRO BNPII] Stat Lab 10/26/23 08:30 Completed CBC W DIFF Stat Lab 10/26/23 09:11 Completed CMP Stat Lab 10/26/23 09:11 Completed LIPASE Stat Lab 10/26/23 09:11 Completed Lactic Acid Stat Lab 10/26/23 09:19 Completed Lactic Acid Stat Lab 10/26/23 11:23 Completed TROPONIN Q4H Lab 10/26/23 09:11 Completed TROPONIN Q4H Lab 10/26/23 11:23 Received TROPONIN Q4H Lab 10/26/23 16:45 Ordered UA W/RFX UR CULTURE Stat Lab 10/26/23 08:55 Ordered Medication Summary Discontinued Medications Generic Name Dose Route Start Last Admin Trade Name Freq PRN Reason Stop Dose Admin Sodium Chloride 1,000 mls @ 999 mls/hr 10/26/23 08:42 10/26/23 11:17 Sodium Chloride 0.9% 1000 Ml IV 10/26/23 09:42 Infused .Q1H1M STA Infusion Sodium Chloride Confirm 10/26/23 08:56 Sodium Chloride 0.9% 1000 Ml Administered 10/26/23 08:57 Dose 1,000 mls @ ud .ROUTE .STK-MED ONE Ondansetron HCl 4 mg 10/26/23 08:42 10/26/23 09:04 Ondansetron Hcl 4 Mg/2 Ml Vial IV 10/26/23 08:43 4 mg STAT ONE Administration Ondansetron HCl Confirm 10/26/23 08:56 Ondansetron Hcl 4 Mg/2 Ml Vial Administered 10/26/23 08:57 Dose 4 mg .ROUTE .STK-MED ONE Pantoprazole Sodium 40 mg 10/26/23 08:42 10/26/23 09:06 Pantoprazole 40 Mg Vial IV 10/26/23 08:43 40 mg STAT ONE Administration Pantoprazole Sodium Confirm 10/26/23 08:56 Pantoprazole 40 Mg Vial Administered 10/26/23 08:57 Dose 40 mg IV .STK-MED ONE Lab/Rad Data: Laboratory Result Diagrams 10/26/23 09:11 10/26/23 09:11 Laboratory Results 10/26/23 10/26/23 10/26/23 Range/Units 11:23 09:29 09:19 WBC (4.23-9.07) x10^3/uL RBC (4.63-6.08) x10^6/uL Hgb (13.7-17.5) g/dL Hct (40.1-51.0) % MCV (79.0-92.2) fL MCH (25.7-32.2) pg MCHC (32.3-36.5) g/dL RDW (11.6-14.4) % Plt Count (163-337) x10^3/uL MPV (9.4-12.4) fL Gran % (34.0-67.9) % Immature Gran % (Auto) (0.001-0.429) % Nucleat RBC Rel Count (0.00-0.2) % Eos # (Auto) (0.04-0.54) x10^3/uL Immature Gran # (Auto) (0.001-0.031) x10^3u/L Absolute Lymphs (auto) (1.32-3.57) x10^3/uL Absolute Monos (auto) (0.30-0.82) x10^3/uL Absolute Nucleated RBC (0.00-0.012) x10^3u/L Lymphocytes % (21.8-53.1) % Monocytes % (5.3-12.2) % Eosinophils % (0.8-7.0) % Basophils % (0.2-1.2) % Absolute Granulocytes (1.78-5.38) x10^3/uL Basophils # (0.01-0.08) x10^3/uL Sodium (135-145) mmol/L Potassium (3.5-5.1) mmol/L Chloride (98-107) mmol/L Carbon Dioxide (22-30) mmol/L Anion Gap (5-15) MEQ/L BUN (9-20) mg/dL Creatinine (0.66-1.25) mg/dL Estimated GFR ML/MIN Glucose (74-106) mg/dL Lactic Acid 1.0 2.1 H (0.4-2.0) Calcium (8.4-10.2) mg/dL Total Bilirubin (0.2-1.3) mg/dL AST (17-59) U/L ALT (0-50) U/L Alkaline Phosphatase (38-126) U/L Troponin I (0.000-0.033) ng/mL NT-Pro-B Natriuret Pep (<300) pg/mL Serum Total Protein (6.3-8.2) g/dL Albumin (3.5-5.0) g/dL Amylase (30-110) U/L Lipase (23-300) U/L Influenza Type A Ag NEGATIVE (NEGATIVE) Influenza Type B Ag NEGATIVE (NEGATIVE) RSV (PCR) NEGATIVE (NEGATIVE) SARS-CoV-2 (PCR) NEGATIVE (NEGATIVE) 10/26/23 10/26/23 10/26/23 Range/Units 09:11 09:11 09:11 WBC 12.5 H (4.23-9.07) x10^3/uL RBC 5.66 (4.63-6.08) x10^6/uL Hgb 16.1 (13.7-17.5) g/dL Hct 48.9 (40.1-51.0) % MCV 86.4 (79.0-92.2) fL MCH 28.4 (25.7-32.2) pg MCHC 32.9 (32.3-36.5) g/dL RDW 14.6 H (11.6-14.4) % Plt Count 362 H (163-337) x10^3/uL MPV 8.8 L (9.4-12.4) fL Gran % 69.3 H (34.0-67.9) % Immature Gran % (Auto) 0.6 H (0.001-0.429) % Nucleat RBC Rel Count 0.0 (0.00-0.2) % Eos # (Auto) 0.04 (0.04-0.54) x10^3/uL Immature Gran # (Auto) 0.07 H (0.001-0.031) x10^3u/L Absolute Lymphs (auto) 2.42 (1.32-3.57) x10^3/uL Absolute Monos (auto) 1.25 H (0.30-0.82) x10^3/uL Absolute Nucleated RBC 0.00 (0.00-0.012) x10^3u/L Lymphocytes % 19.3 L (21.8-53.1) % Monocytes % 10.0 (5.3-12.2) % Eosinophils % 0.3 L (0.8-7.0) % Basophils % 0.5 (0.2-1.2) % Absolute Granulocytes 8.68 H (1.78-5.38) x10^3/uL Basophils # 0.06 (0.01-0.08) x10^3/uL Sodium 141 (135-145) mmol/L Potassium 3.7 (3.5-5.1) mmol/L Chloride 103 (98-107) mmol/L Carbon Dioxide 22 (22-30) mmol/L Anion Gap 20.1 H (5-15) MEQ/L BUN 42 H (9-20) mg/dL Creatinine 4.03 H (0.66-1.25) mg/dL Estimated GFR 17.1 ML/MIN Glucose 140 H (74-106) mg/dL Lactic Acid (0.4-2.0) Calcium 10.1 (8.4-10.2) mg/dL Total Bilirubin 1.10 (0.2-1.3) mg/dL AST 39 (17-59) U/L ALT 34 (0-50) U/L Alkaline Phosphatase 78 (38-126) U/L Troponin I 0.016 (0.000-0.033) ng/mL NT-Pro-B Natriuret Pep (<300) pg/mL Serum Total Protein 8.8 H (6.3-8.2) g/dL Albumin 5.0 (3.5-5.0) g/dL Amylase 75 (30-110) U/L Lipase 83 (23-300) U/L Influenza Type A Ag (NEGATIVE) Influenza Type B Ag (NEGATIVE) RSV (PCR) (NEGATIVE) SARS-CoV-2 (PCR) (NEGATIVE) 10/26/23 Range/Units 08:30 WBC (4.23-9.07) x10^3/uL RBC (4.63-6.08) x10^6/uL Hgb (13.7-17.5) g/dL Hct (40.1-51.0) % MCV (79.0-92.2) fL MCH (25.7-32.2) pg MCHC (32.3-36.5) g/dL RDW (11.6-14.4) % Plt Count (163-337) x10^3/uL MPV (9.4-12.4) fL Gran % (34.0-67.9) % Immature Gran % (Auto) (0.001-0.429) % Nucleat RBC Rel Count (0.00-0.2) % Eos # (Auto) (0.04-0.54) x10^3/uL Immature Gran # (Auto) (0.001-0.031) x10^3u/L Absolute Lymphs (auto) (1.32-3.57) x10^3/uL Absolute Monos (auto) (0.30-0.82) x10^3/uL Absolute Nucleated RBC (0.00-0.012) x10^3u/L Lymphocytes % (21.8-53.1) % Monocytes % (5.3-12.2) % Eosinophils % (0.8-7.0) % Basophils % (0.2-1.2) % Absolute Granulocytes (1.78-5.38) x10^3/uL Basophils # (0.01-0.08) x10^3/uL Sodium (135-145) mmol/L Potassium (3.5-5.1) mmol/L Chloride (98-107) mmol/L Carbon Dioxide (22-30) mmol/L Anion Gap (5-15) MEQ/L BUN (9-20) mg/dL Creatinine (0.66-1.25) mg/dL Estimated GFR ML/MIN Glucose (74-106) mg/dL Lactic Acid (0.4-2.0) Calcium (8.4-10.2) mg/dL Total Bilirubin (0.2-1.3) mg/dL AST (17-59) U/L ALT (0-50) U/L Alkaline Phosphatase (38-126) U/L Troponin I (0.000-0.033) ng/mL NT-Pro-B Natriuret Pep 451 (<300) pg/mL Serum Total Protein (6.3-8.2) g/dL Albumin (3.5-5.0) g/dL Amylase (30-110) U/L Lipase (23-300) U/L Influenza Type A Ag (NEGATIVE) Influenza Type B Ag (NEGATIVE) RSV (PCR) (NEGATIVE) SARS-CoV-2 (PCR) (NEGATIVE) - Progress Progress: improved, re-examined Progress Note: 10/26/23 09:25 My medical decision making and the assignment of moderate complexity to this patient's medical issue today is based on review of the patient's past medical history, review of the patient's medication list, review of the patient's drug allergy list, history present illness and physical findings on examination. The workup in this patient includes placement of intravenous line, CBC, CMP, amylase, lipase, troponin level, twelve-lead EKG, urinalysis, BNP, viral swabs, CT scan of the abdomen pelvis and chest x-ray. Differential diagnosis includes but is not limited to pneumonia, myocardial infarction, electrolyte abnormalities, dehydration, urinary tract infection, c holecystitis/cholelithiasis, arrhythmia, viral illness 10/26/23 11:41 I interpreted the patient's laboratory data results. The urinalysis is still pending. The patient does have a mild leukocytosis. I interpreted the preliminary report of the chest x-ray. There are no acute cardiopulmonary processes present. CT scan of the abdomen and pelvis without contrast was interpreted by the radiologist and I reviewed the impression. Impression states no acute abnormality. There is a normal appendix. There are 4 renal calculi present. Measurement range 1 to 3 mm. There is a right lower lobar nodule in the lung Counseled pt/family regarding: lab results, diagnosis, rad results - Departure Departure Disposition: Home Clinical Impression: Chronic renal failure, Pulmonary nodule, Left renal stone, Vomiting Condition: Stable Critical Care Time: No Referrals: HELLEN ALARCON, FOOD MANAGEMENT AIDE [Primary Care Provider] - Follow up/PCP as directed Prescriptions: Ondansetron ODT 4 MG [Zofran Odt 4 mg] 4 mg PO Q6H PRN PRN #10 tablet PRN Reason: Vomiting
[2023-10-26 10:06] LABS: INFLUENZA A NEGATIVE (NEGATIVE); INFLUENZA B NEGATIVE (NEGATIVE); RESPIRATORY SYNCTIAL VIRUS NEGATIVE (NEGATIVE); SARS-CoV-2 Xpert Express NEGATIVE (NEGATIVE)
--- NOTE | 2023-10-26 10:24 | XRAY ---
CLINICAL HISTORY: Epigastric ABD pain; vomiting COMPARISON: None. TECHNIQUE: CT of the abdomen and pelvis was performed with axial images as well as sagittal and coronal reconstruction images without intravenous contrast. One of the following dose reduction techniques was utilized for this exam.Automated exposure control, adjustment of the mA and/or kV according to patient size, and use of iterative reconstruction. CTDI: 23.51 FINDINGS: Scanned lung bases reveal right lower lobar nodule (6mm in size) and fibrotic changes in the right middle lobe. Both findings are stable since previous study. The liver is normal in size, morphology and appears unremarkable with no intrahepatic or extrahepatic bile duct dilation. Unremarkable appearing gallbladder with no stones wall thickening or pericholecystic inflammatory changes or fluid. Unremarkable non-enhanced CT appearance of the spleen, adrenal glands and pancreas. Both kidneys are average in size. About 4 renal calculi are seen in the left middle and lower calyceal systems in the range of 1-3mm. No right renal calculi are seen. No cysts, masses or hydronephrosis are seen bilaterally. Average caliber of both ureters. The small and large bowel are average in caliber with no evidence of obstruction. A normal appendix is seen. Few subcentemetric retroperitoneal lymph nodes are noted, none are suspiciously enlarged. The urinary bladder is empty, no definite calculi noted. The prostate is average in size. Mild degenerative changes of the visualized spine, no gross lytic or sclerotic lesions. Atherosclerotic calcifications of the aorta, no aneurysmal dilations. IMPRESSION: 1. No acute abnormality detected given NECT limitations. 2. Few non-obstructive left renal calculi in the range of 1-3mm. 3. Scanned lung bases reveal stable right lower lobar nodule and right middle lobe fibrotic changes. Electronically Signed by: Austen Lou MD. (10/26/2023 10:20:23 EDT)
[2023-10-26 12:55] VITALS: PULSE 89; RESP 12
[2023-10-26 13:19] LABS: Appearance Cloudy (Clear); Bacteria None Seen /HPF (None Seen); Bilirubin Negative (Negative); Blood Negative (Negative); Epithelial Cells Rare /HPF (None Seen); Glucose, Urine Negative (Negative); Hyaline Casts >50 /LPF (0-2); Ketones Trace (Negative); Leukocyte Esterase Trace (Negative); Nitrite Negative (Negative); Protein,Urine Dip 30 (Negative); RBC 0-2 /HPF (0-5)
[2023-10-26 13:20] LABS: ADD URINE CULTURE? YES (NO)
[2023-10-26 13:42] VITALS: BP 96/66; O2SAT 97
--- NOTE | 2023-10-26 18:49 | XRAY ---
Indication: Chest tightness. Comparison: None Portable chest demonstrates normal heart, lungs, and bony thorax.
== END 2023-10-26 13:47 | disposition home or self-care (01) ==
LOC: ED 08:34
DX: R11.2 Nausea with vomiting, unspecified (principal); N20.0 Calculus of kidney; R91.1 Solitary pulmonary nodule; I12.9 Hypertensive chronic kidney disease with stage 1 through stage 4 chronic kidney disease, or unspecified chronic kidney disease; N18.9 Chronic kidney disease, unspecified; Z79.01 Long term (current) use of anticoagulants; Z79.899 Other long term (current) drug therapy; Z72.0 Tobacco use
CPT/HCPCS: 0241U; 36000; 36415; 71045; 74176; 80053; 81001; 82150; 83605; 83690; 83880; 84484; 85025; 87077; 87086; 87186; 96374; 96375; 99284; J2405

== ENCOUNTER 2024-02-18 01:52 | Emergency (ER) | payer OTHER ==
[2024-02-18] MEDS ORDERED: BABY ASPIRIN 81 MG CHEW ONE (01:59)
[2024-02-18] MEDS: BABY ASPIRIN 81 MG CHEW PO ONE (02:00)
[2024-02-18 02:06] VITALS: TEMP 97.7
--- NOTE | 2024-02-18 02:07 | ERPHSYRPT ---
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 Patient reports the chest pain has been intermittent for the past day or 2. However pain became constant this morning. Pain described as an ache that is localized no radiation. No associated nausea no vomiting no diaphoresis. Symptoms are mild to moderate in intensity. No specific worsening improving factors. Patient otherwise feels well. He voices no other complaints or concerns at this time. Portions of this note were created with voice recognition technology. There may be grammatical, spelling, punctuation or sound alike errors Timing/Duration: today Activities at Onset: none Quality: aching Location: other (Left chest) Chest Pain Radiation: no radiation Severity of Pain-Max: moderate Severity of Pain-Current: moderate Modifying Factors: Improves With: nothing Associated Symptoms: denies symptoms Prior Chest Pain/Cardiac Workup: no prior chest pain Nitro Today/Relief: no nitro taken today Aspirin Treatment Today: no aspirin today Allergies/Adverse Reactions: No Known Drug Allergies Allergy (Verified 02/18/24 02:05) Home Medications: Rivaroxaban [Xarelto] 20 mg PO DAILY 01/16/23 [History] Lisinopril 10 mg [Zestril 10 MG] 10 mg PO DAILY 04/12/23 [History] Tamsulosin HCl 0.4 mg [Flomax 0.4 MG] 0.4 mg PO DAILY 02/18/24 [History] Torsemide 20 mg [Demadex 20 mg] 20 mg PO DAILY 02/18/24 [History] Hx Tetanus, Diphtheria Vaccination/Date Given: Yes Hx Influenza Vaccination/Date Given: No Hx Pneumococcal Vaccination/Date Given: No Travel Risk - Emerging Infectious Disease Are you exhibiting symptoms associated with any current EIDs: No - Review of Systems Constitutional: No Symptoms, No Fever, No Chills Eyes: No Symptoms Ears, Nose, & Throat: No Symptoms Respiratory: No Symptoms, No Cough, No Dyspnea Cardiac: No Symptoms, No Chest Pain, No Edema, No Syncope Abdominal/Gastrointestinal: No Symptoms, No Abdominal Pain, No Nausea, No Vomiting, No Diarrhea Genitourinary Symptoms: No Symptoms, No Dysuria Musculoskeletal: No Symptoms, No Back Pain, No Neck Pain Skin: No Symptoms, No Rash Neurological: No Symptoms, No Dizziness, No Focal Weakness, No Sensory Changes Psychological: No Symptoms Endocrine: No Symptoms Hematologic/Lymphatic: No Symptoms Immunological/Allergic: No Symptoms All Other Systems: Reviewed and Negative - Past Medical History Pertinent Past Medical History: Yes Neurological History: No Pertinent History ENT History: No Pertinent History Cardiac History: Deep Vein Thrombosis Respiratory History: Pulmonary Embolism Endocrine Medical History: No Pertinent History Musculoskeletal History: Other GI Medical History: No Pertinent History History: No Pertinent History Psycho-Social History: No Pertinent History Male Reproductive Disorders: No Pertinent History Other Medical History: DVT - Past Surgical History Past Surgical History: Yes Musculoskeletal: Orthopedic Surgery Other Surgical History: broken jaw - Social History Smoking Status: Current every day smoker How long have you smoked: 30 years Exposure to second hand smoke: Yes Drug Use: none Patient Lives Alone: No - Social Determinants of Health Will the patient participate in the screening: Yes Do you worry about a steady place to live?: No In the past 12 months,have you had to go without utilities?: No Transportation Issues: No Has anyone in your support network made you feel unsafe?: No Have you or anyone in your house had to go without enough: No - Nursing Vital Signs Nursing Vital Signs: Initial Vital Signs Temperature 97.7 F 02/18/24 01:53 Pulse Rate 95 H 02/18/24 01:53 Respiratory Rate 18 02/18/24 01:53 Blood Pressure 166/115 02/18/24 01:53 O2 Sat by Pulse Oximetry 100 02/18/24 01:53 Pain Scale Pain Intensity 7 - Physical Exam General Appearance: no apparent distress, alert Eye Exam: PERRL/EOMI, eyes nml inspection Ears, Nose, Throat Exam: normal ENT inspection, moist mucous membranes Neck Exam: normal inspection, full range of motion Respiratory Exam: normal breath sounds, lungs clear, airway intact, No respiratory distress Cardiovascular Exam: regular rate/rhythm, normal heart sounds, normal peripheral pulses Gastrointestinal/Abdomen Exam: soft, No tenderness, No mass Back Exam: normal inspection, No CVA tenderness, No vertebral tenderness Extremity Exam: normal inspection, normal range of motion Neurologic Exam: alert, oriented x 3, cooperative, normal mood/affect, sensation nml, No motor deficits Skin Exam: normal color, warm, dry Lymphatic Exam: No adenopathy SpO2 Interpretation: normal O2 Delivery: Room Air - Course Nursing assessment & vital signs reviewed: Yes EKG Interpreted by Me: RATE (99), Sinus Rhythm, NORMAL AXIS, NORMAL INTERVALS (Inferior lateral TN/STEMI) - Radiology Exams Chest X-ray Interpretation: Interpreted by me (No acute findings) Ordered Tests: Active Orders 24 hr Category Date Time Status Manager Massage Department STAT Care 02/18/24 01:59 Active EKG-ER Only STAT Care 02/18/24 01:58 Active IV Insertion STAT Care 02/18/24 01:58 Active Pulse Oximetry (ED) STAT Care 02/18/24 01:58 Active CHEST 1 VIEW (PORTABLE) Stat Exams 02/18/24 01:59 Taken CBC W DIFF Stat Lab 02/18/24 02:00 Completed CMP Stat Lab 02/18/24 02:00 Received NT PRO BNPII Stat Lab 02/18/24 02:00 Received TROPONIN Q4H Lab 02/18/24 02:00 Received TROPONIN Q4H Lab 02/18/24 06:00 Ordered TROPONIN Q4H Lab 02/18/24 10:00 Ordered Medication Summary Discontinued Medications Generic Name Dose Route Start Last Admin Trade Name Freq PRN Reason Stop Dose Admin Aspirin 324 mg 02/18/24 01:59 02/18/24 02:00 Aspirin 81 Mg Tab.Chew PO 02/18/24 02:00 324 mg STAT ONE Administration Aspirin Confirm 02/18/24 01:59 Aspirin 81 Mg Tab.Chew Administered 02/18/24 02:00 Dose 324 mg .ROUTE .STK-MED ONE Lab/Rad Data: Laboratory Result Diagrams 02/18/24 02:00 Laboratory Results 02/18/24 Range/Units 02:00 WBC 13.2 H (4.23-9.07) x10^3/uL RBC 5.64 (4.63-6.08) x10^6/uL Hgb 15.8 (13.7-17.5) g/dL Hct 48.1 (40.1-51.0) % MCV 85.3 (79.0-92.2) fL MCH 28.0 (25.7-32.2) pg MCHC 32.8 (32.3-36.5) g/dL RDW 13.5 (11.6-14.4) % Plt Count 335 (163-337) x10^3/uL MPV 8.9 L (9.4-12.4) fL Gran % 67.9 (34.0-67.9) % Immature Gran % (Auto) 0.6 H (0.001-0.429) % Nucleat RBC Rel Count 0.0 (0.00-0.2) % Eos # (Auto) 0.15 (0.04-0.54) x10^3/uL Immature Gran # (Auto) 0.08 H (0.001-0.031) x10^3u/L Absolute Lymphs (auto) 2.64 (1.32-3.57) x10^3/uL Absolute Monos (auto) 1.30 H (0.30-0.82) x10^3/uL Absolute Nucleated RBC 0.00 (0.00-0.012) x10^3u/L Lymphocytes % 20.0 L (21.8-53.1) % Monocytes % 9.9 (5.3-12.2) % Eosinophils % 1.1 (0.8-7.0) % Basophils % 0.5 (0.2-1.2) % Absolute Granulocytes 8.96 H (1.78-5.38) x10^3/uL Basophils # 0.06 (0.01-0.08) x10^3/uL - Progress Progress: unchanged Air Movement: good Progress Note: 53-year-old male 75-ltck-tsty smoking history history of PE DVT on Xarelto presents to our ED for evaluation of chest pain. EKG reveals a inferolateral wall STEMI. [facility] notified. Case discussed with boat camp operator and ER physician Dr. Steele who accepts transfer at 2:10 AM. Patient received 324 mg of aspirin. He is on Xarelto. No indication for heparin at this time. The MRI appears to be involving the inferior wall. Nitroglycerin held. Clinical impression discussed with patient. He agrees to transfer to [facility] for further evaluation and treatment. Labs pending. Formal chest x-ray pending. Portions of this note were created with voice recognition technology. There may be grammatical, spelling, punctuation or sound alike errors Complexity of problem addressed is high acute complicated. Critical care time is 30 minutes. Complexity of data reviewed analyzes extensive. Test ordered chest reviewed results analyzed and correlated clinically with history and physical examination. Management discussed with boat camp operator and receiving emergency physician from [facility]. Risk of complication and or risk of morbidity/mortality of patient management is high. Patient requires transfer to higher level of care. Vital stable. Time spent to transfer patient is approximately 30 minutes. Plan of care established for shared decision making. No social determinants of health present to impede follow-up. Portions of this note were created with voice recognition technology. There may be grammatical, spelling, punctuation or sound alike errors 02/18/24 02:17 Blood Culture(s) Obtained: No Antibiotics given: No Discussed with Dr.: Other (Case discussed with Dr. Box of cardiology [facility] 2:10am who accepts transfer) Counseled pt/family regarding: diagnosis, rad results - Departure Departure Disposition: Transfer Clinical Impression: Myocardial infarction acute, STEMI (ST elevation myocardial infarction) Condition: Stable Critical Care Time: Yes Critical Care Time(excluding separately billable procedures): Critical 30-74 mins Referrals: HELLEN ALARCON STUDIO TECHNICIAN [Primary Care Provider] - Follow up/PCP as directed
[2024-02-18 02:17] LABS: Absolute Neutrophil Ct (ANC) 8.96 x10^3/uL (1.78-5.38); BASOPHIL % 0.5 % (0.2-1.2); Basophil (Absolute #) 0.06 x10^3/uL (0.01-0.08); Eosinophil % 1.1 % (0.8-7.0); Eosinophil (Absolute #) 0.15 x10^3/uL (0.04-0.54); Hematocrit 48.1 % (40.1-51.0); Hemoglobin 15.8 g/dL (13.7-17.5); IMMATURE GRAN # 0.08 x10^3u/L (0.001-0.031); IMMATURE GRAN % 0.6 % (0.001-0.429); Lymphocyte (Absolute #) 2.64 x10^3/uL (1.32-3.57); Mean Cell Volume 85.3 fL (79.0-92.2); Mean Corpuscular Hgb Concent. 32.8 g/dL (32.3-36.5); Mean Platelet Volume 8.9 fL (9.4-12.4); Monocytes % 9.9 % (5.3-12.2); Neutrophil % 67.9 % (34.0-67.9); Platelet Count 335 x10^3/uL (163-337); Red Blood Count 5.64 x10^6/uL (4.63-6.08); Red Cell Distribution Width 13.5 % (11.6-14.4); White Blood Count 13.2 x10^3/uL (4.23-9.07)
[2024-02-18 02:38] VITALS: BP 179/113; PULSE 105; RESP 16; O2SAT 94
[2024-02-18 02:41] LABS: ALBUMIN 4.5 g/dL (3.5-5.0); ANION GAP 12.4 MEQ/L (5-15); BILIRUBIN,TOTAL 0.4 mg/dL (0.2-1.3); Calcium 10.1 mg/dL (8.4-10.2); Creatinine 1 1.18 mg/dL (0.66-1.25); EST GLOMERULAR FILTRATION RATE 74.7 ML/MIN; Potassium 4.3 mmol/L (3.5-5.1); Total Protein 7.9 g/dL (6.3-8.2)
--- NOTE | 2024-02-18 02:49 | XRAY ---
CLINICAL HISTORY: pain COMPARISON: CT CHEST 04/12/2023 TECHNIQUE: X-ray image of the chest is obtained in AP projection. FINDINGS: Pulmonary Parenchyma: Prominent perihilar bronchovascular markings. Bilateral lung nodules seen on the CT chest are not conspicuous on the ray. No evidence of consolidation, collapse, or focal opacities. No evidence of pleural effusion or pleural thickening. Heart and Mediastinum: Heart size and shape are normal. No mediastinal widening or masses. No hilar or mediastinal lymphadenopathy. Bony Thorax: Bony thorax appears intact without fractures or deformities. Soft Tissues: Soft tissues overlying the chest wall are unremarkable. IMPRESSION: 1. Prominent perihilar bronchovascular markings. This could be due to inflammatory/infection etiology. Need clinical correlation. Interval new. 2. Bilateral lung nodules seen on the CT chest are not conspicuous on the ray. 3. Otherwise, no significant interval changes compared to previous study dated on 04/12/2023. Electronically Signed by: Austen Lou MD. (02/18/2024 02:46:37 EST)
== END 2024-02-18 02:22 | disposition short-term general hospital (02) ==
LOC: ED 01:52
DX: I21.3 ST elevation (STEMI) myocardial infarction of unspecified site (principal); Z79.01 Long term (current) use of anticoagulants; Z86.718 Personal history of other venous thrombosis and embolism
CPT/HCPCS: 36415; 71045; 80053; 83880; 84484; 85025; 93005; 93041; 94760; 99285; 99291; A9270-GY

== ENCOUNTER 2024-06-19 00:07 | Emergency (ER) | payer OTHER ==
--- NOTE | 2024-06-19 00:09 | ERPHSYRPT ---
- History of Present Illness Time Seen by Provider: 06/19/24 00:08 Source: patient, family Exam Limitations: no limitations Physician History: This is a 54-year-old white male patient who was wearing open toed sandals when he accidentally stubbed his right great toe on a tree stump. This occurred prior to arrival. He arrives by private vehicle. His concern is that there is tenderness of his right great toe but also continuous bleeding. Patient is on baby aspirin, Xarelto and Brilinta. Patient has a history of cardiac stents, DVTs, pulmonary embolism, hypertension and hyperlipidemia. Patient states his tetanus status is up-to-date Method of Injury: direct blow (Caught his right great toe on a tree stump) Occurred: just prior to arrival Quality: constant, aching, throbbing Severity of Pain-Max: moderate Severity of Pain-Current: moderate Lower Extremities Pain: 1st toe: right Modifying Factors: Improves With: movement Associated Symptoms: other (To bear weight) Allergies/Adverse Reactions: No Known Drug Allergies Allergy (Verified 06/19/24 00:22) Home Medications: Rivaroxaban [Xarelto] 20 mg PO DAILY 01/16/23 [History] Aspirin EC 81 mg [Ecotrin 81 mg] 81 mg PO DAILY 06/19/24 [History] Atorvastatin Calcium [Lipitor] 80 mg PO DAILY 06/19/24 [History] Carvedilol 3.125 mg [Coreg 3.125 MG] 6.25 mg PO DAILY 06/19/24 [History] Losartan Potassium 50 mg [Cozaar 50 MG] 50 mg PO DAILY 06/19/24 [History] Ticagrelor [Brilinta] 90 mg PO DAILY 06/19/24 [History] Hx Tetanus, Diphtheria Vaccination/Date Given: Yes Hx Influenza Vaccination/Date Given: No Hx Pneumococcal Vaccination/Date Given: No Travel Risk - International Travel Have you traveled outside of the country in past 3 weeks: No - Emerging Infectious Disease Are you exhibiting symptoms associated with any current EIDs: No - Review of Systems Constitutional: No Symptoms Eyes: No Symptoms Ears, Nose, & Throat: No Symptoms Respiratory: No Symptoms Cardiac: No Symptoms Abdominal/Gastrointestinal: No Symptoms Genitourinary Symptoms: No Symptoms Musculoskeletal: Injury (Right great toe) Skin: Other (Skin laceration right great toe) Neurological: No Symptoms Psychological: No Symptoms Endocrine: No Symptoms Hematologic/Lymphatic: No Symptoms Immunological/Allergic: No Symptoms All Other Systems: Reviewed and Negative - Past Medical History Pertinent Past Medical History: Yes Neurological History: No Pertinent History ENT History: No Pertinent History Cardiac History: Deep Vein Thrombosis Respiratory History: Pulmonary Embolism Endocrine Medical History: No Pertinent History Musculoskeletal History: Other GI Medical History: No Pertinent History History: No Pertinent History Psycho-Social History: No Pertinent History Male Reproductive Disorders: No Pertinent History Other Medical History: DVT - Past Surgical History Past Surgical History: Yes Musculoskeletal: Orthopedic Surgery Other Surgical History: broken jaw - Social History Smoking Status: Current every day smoker How long have you smoked: 30 years Exposure to second hand smoke: Yes Drug Use: none Patient Lives Alone: No - Social Determinants of Health Will the patient participate in the screening: Yes Do you worry about a steady place to live?: No In the past 12 months,have you had to go without utilities?: No Transportation Issues: No Has anyone in your support network made you feel unsafe?: No Have you or anyone in your house had to go w/o enough food: No - Nursing Vital Signs Nursing Vital Signs: Initial Vital Signs Temperature 97.6 F 06/19/24 00:25 Pulse Rate 95 H 06/19/24 00:25 Respiratory Rate 20 06/19/24 00:25 Blood Pressure 133/87 06/19/24 00:25 O2 Sat by Pulse Oximetry 97 06/19/24 00:25 Pain Scale Pain Intensity 5 - Physical Exam General Appearance: no apparent distress, alert, anxiety Eyes, Ears, Nose, Throat Exam: normal ENT inspection, moist mucous membranes Neck Exam: normal inspection, non-tender, supple, full range of motion Cardiovascular/Respiratory Exam: chest non-tender, no respiratory distress Gastrointestinal/Abdominal Exam: non-tender Back Exam: normal inspection, normal range of motion, No CVA tenderness, No vertebral tenderness Hips Exam: bilateral: non-tender, normal inspection, normal range of motion, no evidence of injury Legs Exam: bilateral leg: non-tender, normal inspection, normal range of motion, no evidence of injury Knees Exam: bilateral knee: non-tender, normal inspection, normal range of motion, no evidence of injury Ankle Exam: bilateral ankle: non-tender, normal inspection, normal range of motion, no evidence of injury Foot Exam: right foot: bone tenderness (Right great toe), soft tissue tenderness (Right great toe), other (C shaped 3 cm skin laceration right great toe), left foot: non-tender, normal inspection, normal range of motion, no evidence of injury Neuro/Tendon Exam: normal sensation, normal motor functions, normal tendon functions, responds to pain, no evidence tendon injury Mental Status Exam: alert, oriented x 3, cooperative Skin Exam: laceration (Skin laceration right great toe) SpO2 Interpretation: normal O2 Delivery: Room Air Procedures - Laceration/Wound Repair Right Distal Toe Time of Procedure: 23:55 Wound Location: Right, foot (First toe) Wound Length (cm): 3 Wound's Depth, Shape: superficial, into muscle Wound Explored: clean Irrigated: Yes Hibiclens Prep: Yes Anesthesia: local, 1% Lidocaine Suture Size/Type: 3-0, nylon Number of Sutures: 3 Progress: 06/19/24 01:10 Patient tolerated the procedure well. There were no complications. Telfa, Kerlix and pressure dressing were applied. - Course Nursing assessment & vital signs reviewed: Yes Ordered Tests: Active Orders 24 hr Category Date Time Status FOOT (MINIMUM 3 VIEWS) Stat Exams 06/19/24 00:38 Taken Medication Summary Discontinued Medications Generic Name Dose Route Start Last Admin Trade Name Lucas PRN Reason Stop Dose Admin Bacitracin Zinc 0.9 each 06/19/24 00:42 06/19/24 00:58 Bacitracin Packet 1 Each Pckt TP 06/19/24 00:43 0.9 each STAT ONE Administration Bacitracin Zinc Confirm 06/19/24 00:58 Bacitracin Packet 1 Each Pckt Administered 06/19/24 00:59 Dose 1 each .ROUTE .STK-MED ONE Cephalexin HCl 500 mg 06/19/24 00:42 06/19/24 00:58 Cephalexin Mh500 Mg Capsule PO 06/19/24 00:43 500 mg STAT ONE Administration Cephalexin HCl Confirm 06/19/24 00:58 Cephalexin Mh500 Mg Capsule Administered 06/19/24 00:59 Dose 500 mg .ROUTE .STK-MED ONE Lidocaine HCl Confirm 06/19/24 00:23 Lidocaine Hcl 1% 20 Ml Mdv 20 Ml Ml Administered 06/19/24 00:24 Dose 1 ml .ROUTE .STK-MED ONE Lidocaine HCl 10 ml 06/19/24 00:41 06/19/24 00:42 Lidocaine Hcl 1% 20 Ml Mdv 20 Ml Ml IJ 06/19/24 00:42 10 ml STAT ONE Administration - Progress Progress: improved, pain not gone completely Progress Note: 06/19/24 01:05 My medical decision making and the assignment of low to moderate complexity is based on review of the patient's past medical history, review the patient's medication list, review the patient drug allergy list, history present illness and physical findings on examination. The workup in this patient includes x-ray of the patient's right foot. Differential diagnosis includes but is not limited to acute fracture/dislocation right great toe, skin laceration right great toe I interpreted the patient's preliminary x-ray report of his right foot. I do not see an acute fracture or dislocation present. Counseled pt/family regarding: diagnosis, need for follow-up, rad results Medical Desision Making - Independent Historian Additional History obtained from: Family - Discussion of managment Reviewed:: Test results - Diagnostic Testing Diagnostic test were ordered, analyzed, and reviewed by me: Yes Radiological Interpretation: Interpreted by me, Teleradiologist Report - Risk of complications Minimal Risk: Minimal risk of morbidity The pt has a mod risk of morbidity or mortality based on: Need for prescription drug management - Departure Departure Disposition: Home Clinical Impression: Contusion of right great toe without damage to nail, Laceration of great toe of right foot Condition: Stable Critical Care Time: No Referrals: HELLEN ALARCON MANAGER MANAGEMENT [Primary Care Provider, UNKNOWN] - Follow up/PCP as directed Additional Instructions: Keep the current dressing in place for 24 hours. After 24 hours you may rinse the site off daily with hot soapy water followed by blot dry use a hair dry then apply antibiotic ointment of choice once a day. Take your oral antibiotics as prescribed Prescriptions: Cephalexin Mh 500 mg [Keflex 500 mg] 500 mg PO TID #21 cap
[2024-06-19] MEDS ORDERED: XYLOCAINE 1% HCL 20 ML MDV ONE (00:23)
[2024-06-19 00:38] VITALS: TEMP 97.6
[2024-06-19] MEDS: XYLOCAINE 1% HCL 20 ML MDV IJ ONE (00:42)
[2024-06-19] MEDS ORDERED: BACIGUENT PACKET ONE (00:58)
[2024-06-19] MEDS: KEFLEX 500 MG PO ONE (00:58)
[2024-06-19] MEDS: BACIGUENT PACKET TP ONE (00:58)
[2024-06-19] MEDS ORDERED: KEFLEX 500 MG ONE (00:58)
[2024-06-19] MEDS ORDERED: NORCO 5/325 MG ONE (01:20)
[2024-06-19] MEDS: NORCO 5/325 MG PO ONE (01:24)
[2024-06-19 02:02] VITALS: BP 112/73; PULSE 85; RESP 18; O2SAT 97
--- NOTE | 2024-06-19 05:37 | XRAY ---
Indication: Great toe laceration. Comparison: None 3 nonweightbearing views right foot demonstrates pes planus, mild 1st MTP degenerative changes, small mid calcaneal bone island, and small posterior/plantar heel spurs. No other bony, articular, or soft tissue abnormalities.
== END 2024-06-19 02:05 | disposition home or self-care (01) ==
LOC: ED 00:07
DX: S91.111A Laceration without foreign body of right great toe without damage to nail, initial encounter (principal); W22.09XA Striking against other stationary object, initial encounter; I10 Essential (primary) hypertension; E78.5 Hyperlipidemia, unspecified; Z79.01 Long term (current) use of anticoagulants; Z79.02 Long term (current) use of antithrombotics/antiplatelets; Z79.899 Other long term (current) drug therapy; Z72.0 Tobacco use
CPT/HCPCS: 12002; 73630; 99283; A9270-GY

== ENCOUNTER 2024-06-19 15:20 | Emergency (ER) | payer OTHER ==
[2024-06-19 15:59] VITALS: TEMP 98
[2024-06-19 16:28] VITALS: BP 118/68; PULSE 97; RESP 20; O2SAT 98
== END 2024-06-19 16:29 | disposition home or self-care (01) ==
LOC: ED 15:20
DX: Z48.00 Encounter for change or removal of nonsurgical wound dressing (principal)
CPT/HCPCS: 99281